=== PATIENT | female | born 1925 | race Caucasian/White ===

== ENCOUNTER 2016-09-16 07:30 | Emergency (ER) | payer MEDICARE, OTHER ==
[~2016-09-16] VITALS: Wt 90.0 kg
[~2016-09-16 07:30] MED LIST: ATEN50TA PO; BIMA2.5D BOTH EYES; COMBIG5 BOTH EYES; HYDR12.58 PO; IBUP-1542 PO; LEVO100T82 PO; NITR-58 PO; SIMV40TA2 PO; SOLI5TAB5 PO; VALA500T PO
[2016-09-16] MEDS ORDERED: IBUP400T22 PO (08:08)
--- NOTE | 2016-09-16 08:11 | ERD ---
ER Documentation Chief Complaint Date/Time DATE: 09/16/16 TIME: 08:09 Chief Complaint NON TRAUMATIC LEFT LEG PAIN SINCE THIS MORNING. NO DEFORMITY NO TRAUMA. HPI This is an 89-year-old female who complains of several week history of pain in her left buttocks that radiates down the back of the left leg described as sharp and burning. She says the pain is off and on lasting several hours at a time. She said the pain happened last night just before bed around 11 PM. She said the pain then went away and came back again in the middle of the night. She said the pain is exactly the same each time. She says she has an appointment with her orthopedic surgeon on September 22. She has no loss of bowel or bladder no back pain no weakness in the leg or numbness in the left leg. Currently says her pain is 0 out of 10. Patient was given a prescription for hydrocodone by her primary care doctor but she is afraid to take ROS All systems reviewed and are negative except as per history of present illness. Medications Home Meds Active Scripts Ibuprofen* (Motrin*) 400 Mg Tab, 400 MG PO Q8, #30 TAB Prov:CLAY ROBBINS DO 09/16/16 Nitrofurantoin Monohyd Macrocr* (Macrobid*) 100 Mg Capsr, 100 MG PO Q6 for 14 Days, CAP Prov:LAURA HOLLEY 02/07/16 Levothyroxine Sodium* (Levoxyl*) 100 Mcg Tablet, 88 MCG PO BEFORE BREAKFAST, # 30 TAB Prov:LAURA HOLLEY 02/07/16 Ibuprofen* (Ibuprofen*) 600 Mg Tablet, 600 MG PO Q8 for PAIN, #30 TAB Prov:BRAVO AVILA MD 02/04/16 Reported Medications Brimonidine/Timolol* (Combigan*) 5 Ml Drops, 1 DROP BOTH EYES BID, BOTTLE 02/04/16 Bimatoprost* (Lumigan*) 0.01%-2.5 Ml Opht Drops, 1 DROP BOTH EYES HS, EA 02/04/16 Valacyclovir Hcl* (Valacyclovir Hcl*) 500 Mg Tablet, 500 MG PO BID, TAB 02/04/16 Solifenacin* (Vesicare*) 5 Mg Tablet, 5 MG PO DAILY, TAB 02/04/16 Hydrochlorothiazide* (Hydrochlorothiazide*) 12.5 Mg Tablet, 12.5 MG PO DAILY, # 30 TAB 02/04/16 Simvastatin* (Zocor*) 40 Mg Tablet, 40 MG PO DAILY 10/20/11 Atenolol* (Atenolol*) 50 Mg Tablet, 50 MG PO BID 10/20/11 Allergies Allergies: Coded Allergies: No Known Drug Allergies (Verified Allergy, Unknown, 02/04/16) PMhx/Soc History of Surgery: Yes (Appendectomy,hysterectomy,hysterectomy,2nd toe ulcer repair 10-17-11) Anesthesia Reaction: No Hx Neurological Disorder: No Hx Respiratory Disorders: Yes (lung surgery) Hx Cardiac Disorders: Yes (HTN) Hx Psychiatric Problems: No Hx Miscellaneous Medical Probl: No Hx Alcohol Use: No Hx Substance Use: No Hx Tobacco Use: Yes Smoking Status: Former smoker FmHx Family History: No coronary disease Physical Exam Vitals Vital Signs Date Time Temp Pulse Resp B/P Pulse Ox O2 Delivery O2 Flow Rate FiO2 09/16/16 07:47 98.5 62 20 190/84 98 Physical Exam Const: Well-developed, well-nourished Head: Atraumatic, normocephalic Eyes: Normal Conjunctiva, PERRLA, EOMI, normal sclera, no nystagmus ENT: Normal External Ears, Nose and Mouth, moist mucus membranes. Neck: Full range of motion. No meningismus, no lymphadenopathy. Resp: Clear to auscultation bilaterally, no wheezing, rhonchi, rales Cardio: Regular rate and rhythm, no murmurs, S1 S2 present Abd: Soft, non tender x 4, non distended. Normal bowel sounds, no guarding or rebound, no pulsitile abdominal masses or bruits Skin: No petechiae or rashes, no ecchymosis , no maculopapular rash Back: No midline or flank tenderness Ext: No cyanosis, or edema, FROM x 4, normal inspection, neurovascularly intact x 4, reproducible tenderness in the left buttocks, negative straight leg test L Neur: Awake and alert, STR 5/5 x 4, sensation intact x 4, no focal findings, cerebellum intact Psych: Normal Mood and Affect Procedures/MDM Patient's symptoms are consistent with sciatica. Told her stretches to do and to apply heating pad and massage and keep her appointment with orthopedic also encouraged her to take her pain medication Departure Diagnosis: Primary Impression: Sciatica of left side Condition: Stable Patient Instructions: Understanding Sciatica CLAY ROBBINS DO September 16, 2016 08:11
[2016-09-16] MEDS ORDERED: HYDROCODONE/APAP (5/325) TAB PO ONE (08:30)
[2016-09-16 09:30] VITALS: BP 163/89; PULSE 71; RESP 17; TEMP 98.3
== END 2016-09-16 09:31 | disposition home or self-care (01) ==
LOC: E/R 07:30
DX: M54.32 Sciatica, left side (principal); I10 Essential (primary) hypertension; Z87.891 Personal history of nicotine dependence
CPT/HCPCS: 99283